=== PATIENT | female | born 1985 | race Asian ===

== ENCOUNTER 2016-12-08 19:21 | Emergency (ER) | payer SELFPAY ==
[~2016-12-08] VITALS: Ht 167.6 cm; Wt 64.5 kg
[2016-12-08] MEDS ORDERED: SODIUM CHLORIDE FLUSH 10ML SYR IVF ONE (20:30)
[2016-12-08] MEDS ORDERED: SODIUM CHLORIDE 0.9% 1,000ML IVBOLUS ONE (20:30)
[2016-12-08] MEDS ORDERED: ONDANSETRON 2MG/ML, 2ML IVPush ONE (20:30)
[2016-12-08] MEDS ORDERED: ONDANSETRON 2MG/ML, 2ML ONE (20:35)
[2016-12-08 21:23] VITALS: BP 99/58
[2016-12-08 22:04] LABS: BLOOD UREA NITROGEN 6 mg/dL (7-18)
== END 2016-12-08 22:55 | disposition home or self-care (01) ==
LOC: ED 22:49
DX: E86.0 Dehydration (principal)
CPT/HCPCS: 36415; 80048; 82040; 84703; 85025; 96361; 96374; 99285; J2405; J7030